=== PATIENT | male | born 1945 | race Caucasian/White ===

== ENCOUNTER 2021-11-25 07:08 | Outpatient (CLI) | payer MEDICARE, SELFPAY ==
--- NOTE | 2021-11-25 07:19 | MR_ITS ---
WS: [id number] MRI LEFT KNEE NONCONTRAST TECHNIQUE: Axial PD, coronal PD fat sat, coronal PD, sagittal PD, and sagittal PD fat-sat images obta ined. CLINICAL INFORMATION: LEFT MEDIAL KNEE PAIN COMPARISON: None. FINDINGS: Distal quadriceps and patella tendons are intact. Small suprapatellar effusion. Prepatellar and infra patellar soft tissue edema. Edema in Hoffa's fat pad. 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 ACL and PCL are intact. Soft tissue edema about the joint line. Moderate narrowing of the medial joint compartment with grade III chondromalacia. Chronic thinning of the medial and lateral meniscus worse in the medial joint co mpartment. Small amount subchondral edema in the medial tibial plateau. Mild peripheral extrusion of the medial meniscus. Chronic appearing blunting of the medial meniscus at the meniscal root. Moderate chondromalacia patella. Small amount of fluid and edema deep to the medial collateral ligame nt consistent with grade one injury. Lateral collateral ligament is normal. Normal popliteal fossa. N ormal medial and lateral patellar retinaculum. MR/MR knee LT wo con* [id number] IMPRESSION: 1. Normal ACL and PCL. 2. Small suprapatellar effusion. 3. 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 4. Grade 1 injury MCL with a small amount of fluid and edema along the MCL whi ch appears intact. 5. Chronic appearing blunting of the medial meniscus at the meniscal root with moderate joint space narrowing. Grade 3 chondromalacia. 6. Moderate chondromalacia patella 7. Small amount of edema in the medial tibial plateau. Outbridge grading: grade III: partial-thickness cartilage loss with focal ulcer ation
== END 2021-11-25 07:09 | disposition home or self-care (01) ==
LOC: RAD 07:12
PROVIDERS: Family Provider Nurse Practitioner Family; Visit Provider Nurse Practitioner Family
DX: M22.42 Chondromalacia patellae, left knee; R60.0 Localized edema; M17.12 Unilateral primary osteoarthritis, left knee; M25.462 Effusion, left knee
CPT/HCPCS: 73721

== ENCOUNTER → 2022-01-03 13:15 | Outpatient (BNVA) | payer MEDICARE, SELFPAY | PROVIDERS: Family Provider Nurse Practitioner Family; Referring Provider Nurse Practitioner; Visit Provider Specialist | DX: M25.562 Pain in left knee (principal); G89.29 Other chronic pain | CPT/HCPCS: 73560; 73565; 99214 ==

== ENCOUNTER 2023-08-16 11:30 | Emergency (ER) | payer MEDICARE, SELFPAY ==
[2023-08-16 11:34] VITALS: BP 171/77; PULSE 72; RESP 17; TEMP 36.7; O2SAT 96
--- NOTE | 2023-08-16 11:50 | CT_ITS ---
WS: [id number] CT HEAD NONCONTRAST HISTORY: arm numbness TECHNIQUE: Contiguous axial imaging performed through the brain in 3.0 mm imaging. Bone and soft tiss ue windows. Sagittal and coronal reformats reviewed. All CT scans at [facility] use at least one of these dose optimization techniques: automated exposure control; mA and/or kV adjustment per pa tient size (includes targeted exams where dose is matched to clinical indication); or iterative recon struction. DLP: 1131.78 mGy.cm COMPARISON: None available. No acute intracranial hemorrhage, midline shift or mass effect. Moderate bilateral frontal atrophy. Mild cerebellar atrophy. Mild small vessel disease. Ventricles: Normal size with no hydrocephalus. Paranasal sinuses: As visualized are clear. Mastoid air cells: Well pneumatized. Increased soft tissue in the external auditory canals. Calvarium and scalp: Skull is intact with no soft tissue edema or swelling. CT/CT head wo con* [id number] IMPRESSION: 1. Moderate bilateral frontal lobe atrophy and mild small vessel ischemic dise ase. 2. No hemorrhage. Notified Severo Herzog DO at 08/16/2023 12:47 PM.
--- NOTE | 2023-08-16 11:50 | ECG_ITS ---
[facility] Test Date: 2023-08-16 Pat Name: Hitesh Daugherty Department: Room: Gender: Male [employer] Machine Operator: : [id number] Requested By: Severo Beaver Order Number: [id number] Bladimir MD: Debbi Moeller M.D. Measurements Intervals [place] Rate: 66 P: 16 MO: 143 QRS: -51 QRSD: 99 T: 30 QT: 373 QTc: 393 Interpretive Statements SINUS RHYTHM LEFT AXIS DEVIATION [QRS AXIS < -30] No previous ECG available for comparison Electronically Signed On 08-16-2023 20:02:18 CDT by Debbi Moeller M.D. [id number]
[2023-08-16 12:11] VITALS: BP 174/93; PULSE 68; O2SAT 93
[2023-08-16 12:22] LABS: Basophils # 0.1 10^3/uL (0.0-0.1); Basophils % 0.8 %; Eosinophils # 0.2 10^3/uL (0.0-0.8); Eosinophils % 1.9 %; Hematocrit 42.3 % (37-53); Lymphocytes # 2.7 10^3/uL (0.8-4.8); Lymphocytes % 31.6 %; Mean Corpuscular HGB Conc 33.1 g/dL (30-55); Mean Corpuscular Volume 90.6 fl (82-101); Mean Platelet Volume 9.2 fL (7.4-10.4); Monocytes # 0.7 10^3/uL (0.2-0.9); Monocytes % 8.7 %; Neutrophils # 4.81 10^3/uL (1.8-7.7); Neutrophils % 56.8 %; Nucleated Red Blood Cells % 0 %; Platelet Count 281 10^3/cmm (157-399); Red Blood Count 4.67 10^6/uL (3.85-5.65); Red Cell Distribution Width 13.7 % (12.1-15.1); White Blood Count 8.48 10^3/uL (3.29-11.43)
[2023-08-16 12:39] LABS: Alanine Aminotransferase 18 U/L (0-41); Albumin Level 3.9 g/dL (3.5-5.2); Alkaline Phosphatase 68 U/L (40-130); Anion Gap 14.1 (5-19); Aspartate Amino Transferase 16 U/L (0-40); Blood Urea Nitrogen 20 mg/dL (8-23); Calcium 8.8 mg/dL (8.5-10.5); Carbon Dioxide 24 mmol/L (22-29); Chloride 105 mmol/L (98-107); Creatinine Clr Calc Pharmacy 99.1084; Globulin 3.3 g/dL (1.3-4.6); Glucose 116 mg/dL (65-115); Osmolality Calculated 292 mOsm/kg (285-295); Potassium 4.1 mmol/L (3.5-5.1); Sodium 139 mmol/L (136-145); Total Bilirubin 0.2 mg/dL (0.15-1.2); Total Protein 7.2 g/dL (6.6-8.7)
[2023-08-16 12:45] VITALS: BP 168/77; PULSE 67; O2SAT 95
--- NOTE | 2023-08-16 13:11 | ED_ITS ---
HPI - Neuro Symptoms/Deficit 2 General: Chief Complaint: Neuro Symptoms/Deficit Stated Complaint: right eveline facial numbness Time Seen by Provider: 08/16/23 11:46 Source: patient Mode of arrival: EMS History of Present Illness: 78-year-old male presents emergency room complaints of right arm and right-sided facial numbness. This has completely resolved at this point. Patient states while he was playing pool he began to initially have numbness and tingling in his right thumb and index finger it radiated proximally. A few minutes later he felt his right side of his face was little bit numb when he went to blow his nose. He had no difficulty with speech or swallowing no difficulty with vision no difficulty with his balance or gait. All of his symptoms resolved within about 15 minutes. No previous history of stroke no head trauma. Onset (ago): minute(s) Relieving factors: none Exacerbating factors: none Associated symptoms: Deny chest pain, cough, diaphoresis, fevers/chills, headache(s), anorexia, malaise, nausea, seizures, short of breath, syncope, tingling, vertigo, vomiting or weakness Treatments Prior to Arrival: none Review of Systems 2 Const: Denies: malaise or diaphoresis Card: Denies: chest pain or syncope Resp: Denies: dyspnea GI: Denies: nausea or vomiting : Denies: dysuria, urinary frequency or urinary urgency Musc: Denies: neck pain or back pain Skin/Breast: Denies: rash Neuro: Denies: headache(s) or vertigo PFSH ED 2 PFSH: Social History Smoking and tobacco/nicotine status: current some day tobacco/nicotine user NIH stroke score 2 NIHSS: Level Of Consciousness - 1a: 0 Level Of Consciousness Questions - 1b: Both Correct Level Of Consciousness Commands - 1c: Both Correct Best Gaze - 2: Normal Visual Eng - 3: No Visual Loss Facial Palsy - 4: N ormal Motor Arm Right - 5: No Drift Motor Arm Left - 5: No Drift Motor Leg Right - 6: No Drift Motor Leg Left - 6: No Drift Limb Ataxia - 7: A bsent Sensory - 8: Normal Best Language - 9: No Aphasia Dysarthia - 10: Normal Extinction And Inattention - 11: 0 Score: Total Score: 0 Physical Exam 2 Const: COMMON NORMALS: no acute distress GENERAL APPEARANCE: cooperative and comfortable ORIENTATION/CONSCIOUSNESS: Yes awake, Yes oriented to person, Yes oriented to place and Yes oriented to time HENMT: COMMON NORMALS: normocephalic, atraumatic and hearing grossly normal bilaterally HEAD & SCALP: normocephalic and atraumatic Resp: COMMON NORMALS: normal respiratory effort, No retractions, No use of accessory muscles and clear to auscultation bilaterally AUSCULTATION: clear to auscultation bilaterally Cardio: COMMON NORMALS: regular rate, regular rhythm and No murmurs present (Cardio) RATE: regular rate RHYTHM: regular rhythm GI: COMMON NORMALS: Soft to palpation and No hepatosplenomegaly present A USCULTATION: Yes normoactive bowel sounds PALPATION: Yes Soft to palpation, No Tenderness to palpation present (GI), No Guarding due to palpation present (GI) and Yes No hepatosplenomegaly present Extremity: COMMON NORMALS: normal to inspection, capillary refill normal, no clubbing, cyanosis or edema, no calf tenderness and no pedal edema Neuro: SENSORIUM/ORIENTATION: Yes oriented to person, Yes oriented to place and Yes oriented to time Skin: COMMON NORMALS: no rashes or lesions noted GENERAL SKIN EXAM: no rashes or lesions noted Course 2 Vital Signs: Vital signs: Vital Signs Temperature 98.0 F 08/16/23 11:34 Pulse Rate 67 08/16/23 12:45 Respiratory Rate 17 08/16/23 11:34 Blood Pressure 168/77 08/16/23 12:45 Pulse Oximetry 95 08/16/23 12:45 Oxygen Delivery Me thod Room Air 08/16/23 12:45 MDM - Neuro Symptoms/Deficit Medical Decision Making Labs and imaging reviewed. Patient has no symptoms. The symptoms he had were isolated to the first and second fingers in the right hand and have resolved. 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 Will have him follow-up with neurology. Start baby aspirin daily return if he has further symptoms Medical Records I reviewed the patient's medical records. Lab Data I reviewed the patient's lab results. 08/16/23 12:04 08/16/23 12:[address] 08/16/23 11:50 IMPRESSION: 1. Moderate bilateral frontal lobe atrophy and mild small vessel ischemic disease. 2. No hemorrhage. Notified Severo Herzog DO at 08/16/2023 12:47 PM. Laboratory Results WBC 8.48 10^3/uL (3.29-11.43) 08/16/23 12:04 RBC 4.67 10^6/uL (3.85-5.65) 08/16/23 12:04 Hgb 14.00 g/dL (11.27-16.99) 08/16/23 12:04 Hct 42.3 % (37-53) 08/16/23 12:04 MCV 90.6 fl (82-101) 08/16/23 12:04 MCH 30.0 pg (27-33) 08/16/23 12:04 MCHC 33.1 g/dL (30-55) 08/16/23 12:04 RDW 13.7 % (12.1-15.1) 08/16/23 12:04 Plt Count 281 10^3/cmm (157-399) 08/16/23 12:04 MPV 9.2 fL (7.4-10.4) 08/16/23 12:04 Neut % (Auto) 56.8 % 08/16/23 12:04 Lymph % (Auto) 31.6 % 08/16/23 12:04 [place] % (Auto) 8.7 % 08/16/23 12:04 Eos % (Auto) 1.9 % 08/16/23 12:04 Baso % (Auto) 0.8 % 08/16/23 12:04 Neut # (Auto) 4.81 10^3/uL (1.8-7.7) 08/16/23 12:04 Lymph # (Auto) 2.7 10^3/uL (0.8-4.8) 08/16/23 12:04 [place] # (Auto) 0.7 10^3/uL (0.2-0.9) 08/16/23 12:04 Eos # (Auto) 0.2 10^3/uL (0.0-0.8) 08/16/23 12:04 Baso # (Auto) 0.1 10^3/uL (0.0-0.1) 08/16/23 12:04 Nucleated RBC % (auto) 0 % 08/16/23 12:04 Nucleated RBCs # 0.0 /100WBC 08/16/23 12:04 Sodium 139 mmol/L (136-145) 08/16/23 12:04 Potassium 4.1 mmol/L (3.5-5.1) 08/16/23 12:04 Chloride 105 mmol/L (98-107) 08/16/23 12:04 Carbon Dioxide 24 mmol/L (22-29) 08/16/23 12:04 Anion Gap 14.1 (5-19) 08/16/23 12:04 BUN 20 mg/dL (8-23) 08/16/23 12:04 Creatinine 0.8 mg/dL (0.7-1.2) 08/16/23 12:04 GFR Calculation Not Reportable 08/16/23 12:04 Glucose 116 mg/dL (65-115) H 08/16/23 12:04 Calculated Osmolality 292 mOsm/kg (285-295) 08/16/23 12:04 Calcium 8.8 mg/dL (8.5-10.5) 08/16/23 12:04 Total Bilirubin 0.2 mg/dL (0.15-1.2) 08/16/23 12:04 AST 16 U/L (0-40) 08/16/23 12:04 ALT 18 U/L (0-41) 08/16/23 12:04 Alkaline Phosphatase 68 U/L (40-130) 08/16/23 12:04 Total Protein 7.2 g/dL (6.6-8.7) 08/16/23 12:04 Albumin 3.9 g/dL (3.5-5.2) 08/16/23 12:04 Globulin 3.3 g/dL (1.3-4.6) 08/16/23 12:04 All radiology interpretation(s) finalized by discharge Discharge Plan Discharge Patient Disposition: Home Clinical Impression: Median nerve compression Condition: Stable Prescriptions: New aspirin 81 mg tablet,delayed release (DR/EC) 81 mg PO DAILY Qty: 30 0RF Discharge Orders: Discharge ED (Routine); Ordered 08/16/23 Ordered By: Severo Herzog Discharge Diet: Usual diet Discharge Activity: Increase activity as tolerated Patient Instructions: Opioid Safety, Pain Management Activity Restrictions/Additional Instructions: Thank you for choosing [facility] for your healthcare needs today. Please realize this is an emergency room and that we are providing you with a medical screening exam and this may not be complete and all inclusive of all the testing and or work up that you may need to determine your ailment or severity of your illness. It is very important that you follow up as instructed or that you return to the Emergency Department should you have concerns or if your condition changes or worsens in any way. You are seen today for complaint of numbness in your hand radiating proximally. No significant findings noted on exam or on the CT done. Suspect this is a peripheral nerve compression do recommend he start on baby aspirin daily. Follow-up with your primary care doctor within the next week. Coding Level of Care Code ED Document Imaging Specialist for Dez Mckeon
== END 2023-08-16 13:59 | disposition home or self-care (01) ==
PROVIDERS: Emergency Provider Family Medicine
DX: G56.01 Carpal tunnel syndrome, right upper limb (principal); Z72.0 Tobacco use
CPT/HCPCS: 70450; 80053; 85025; 93005; 99284

== ENCOUNTER → 2024-12-12 08:48 | Outpatient (BNVA) | payer MEDICARE, SELFPAY | PROVIDERS: Visit Provider Nurse Practitioner Family | DX: L30.9 Dermatitis, unspecified (principal); L30.8 Other specified dermatitis; L82.1 Other seborrheic keratosis; L57.8 Other skin changes due to chronic exposure to nonionizing radiation; L81.4 Other melanin hyperpigmentation; L57.0 Actinic keratosis | CPT/HCPCS: 17000; 99203 ==

== ENCOUNTER → 2025-01-29 09:09 | Outpatient (BNVA) | payer MEDICARE, SELFPAY | PROVIDERS: Visit Provider Nurse Practitioner Family | DX: L57.8 Other skin changes due to chronic exposure to nonionizing radiation (principal); L30.9 Dermatitis, unspecified | CPT/HCPCS: 11104; 99212 ==

== ENCOUNTER → 2025-02-10 13:18 | Outpatient (BNVA) | payer MEDICARE, SELFPAY | PROVIDERS: Visit Provider Nurse Practitioner Family | DX: L23.9 Allergic contact dermatitis, unspecified cause (principal) | CPT/HCPCS: 99213 ==

== ENCOUNTER → 2025-03-10 08:33 | Outpatient (BNVA) | payer MEDICARE, SELFPAY | PROVIDERS: Visit Provider Nurse Practitioner Family | DX: L23.9 Allergic contact dermatitis, unspecified cause (principal); L92.0 Granuloma annulare; L57.8 Other skin changes due to chronic exposure to nonionizing radiation; L81.4 Other melanin hyperpigmentation | CPT/HCPCS: 99214 ==

== ENCOUNTER → 2025-03-17 13:36 | Outpatient (BNVA) | payer MEDICARE, SELFPAY | PROVIDERS: Visit Provider Dermatology | DX: L23.9 Allergic contact dermatitis, unspecified cause (principal) | CPT/HCPCS: 95044 ==

== ENCOUNTER → 2025-03-19 13:43 | Outpatient (BNVA) | payer MEDICARE, SELFPAY | PROVIDERS: Visit Provider Dermatology | DX: L23.9 Allergic contact dermatitis, unspecified cause (principal) | CPT/HCPCS: 99214 ==

== ENCOUNTER → 2025-03-21 09:30 | Outpatient (BNVA) | payer MEDICARE, SELFPAY | PROVIDERS: Visit Provider Dermatology | DX: L23.9 Allergic contact dermatitis, unspecified cause (principal) | CPT/HCPCS: 99213 ==